=== PATIENT | female | born 1995 | race Caucasian/White ===

== ENCOUNTER 2024-10-08 16:32 | Emergency (ER) | payer BC ==
[~2024-10-08] VITALS: Ht 165.1 cm; Wt 144.6 kg
[~2024-10-08 16:32] MED LIST: ALBU8HFA PO; FLUT16SP10 NAS
[2024-10-08 16:36] VITALS: BP 162/92; PULSE 95; RESP 16; TEMP 98.6; O2SAT 96
[2024-10-08] MEDS ORDERED: HYDR-3965 PO (17:18)
[2024-10-08] MEDS: ampicillin/sulbac 3gm/NS 100ml 100 ML IV STA (17:22)
[2024-10-08] MEDS: probenecid 500mg tablet PO ONE (17:22)
== END 2024-10-08 18:43 | disposition home or self-care (01) ==
LOC: ER 16:33
DX: S61.031A Puncture wound without foreign body of right thumb without damage to nail, initial encounter (principal); L03.011 Cellulitis of right finger; Z79.52 Long term (current) use of systemic steroids; W55.01XA Bitten by cat, initial encounter; Y93.89 Activity, other specified; Y92.89 Other specified places as the place of occurrence of the external cause; Y99.8 Other external cause status
CPT/HCPCS: 96365; 99284; J0295; J7050